=== PATIENT | female | born 2000 | race Hispanic/Latino ===

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

== ENCOUNTER 2021-01-02 17:17 | Emergency (ER) | payer OTHER, MEDICAID ==
[2021-01-02] MEDS ORDERED: HYDROXYZINE HCL 25 MG TABLET ONE (17:39)
== END 2021-01-02 18:07 | disposition home or self-care (01) ==
LOC: EDH 17:17
DX: F41.1 Generalized anxiety disorder (principal); F90.9 Attention-deficit hyperactivity disorder, unspecified type